=== PATIENT | male | born 1990 | race Caucasian/White ===

== ENCOUNTER 2017-11-13 19:06 | Emergency (ER) | payer MEDICAID ==
[~2017-11-13] VITALS: Ht 188 cm; Wt 82.1 kg
[2017-11-13 19:14] VITALS: Ht 188 cm; Wt 82.1 kg
[2017-11-13 22:42] VITALS: BP 120/66
== END 2017-11-13 22:43 | disposition home or self-care (01) ==
LOC: ED 19:06
DX: L03.113 Cellulitis of right upper limb (principal); F12.10 Cannabis abuse, uncomplicated
CPT/HCPCS: J3490

== ENCOUNTER 2019-02-22 18:24 | Emergency (ER) | payer MEDICAID ==
[~2019-02-22] VITALS: Ht 185.4 cm; Wt 83.5 kg
[2019-02-22 18:38] VITALS: Ht 185.4 cm; Wt 83.5 kg
[2019-02-22 20:03] VITALS: BP 123/60
== END 2019-02-22 20:03 | disposition home or self-care (01) ==
LOC: ED 18:24
DX: B00.1 Herpesviral vesicular dermatitis (principal)

== ENCOUNTER 2020-01-19 19:09 | Emergency (ER) | payer SELFPAY ==
[~2020-01-19] VITALS: Ht 185.4 cm; Wt 83.0 kg
[2020-01-19 20:11] VITALS: Ht 185.4 cm; Wt 83.0 kg
[2020-01-19 21:18] VITALS: BP 128/77
== END 2020-01-19 21:18 | disposition home or self-care (01) ==
LOC: ED 19:09
DX: N34.2 Other urethritis (principal)
CPT/HCPCS: 87491; 87591; J0696

== ENCOUNTER 2020-07-10 11:10 | Emergency (ER) | payer MEDICAID ==
[~2020-07-10] VITALS: Ht 185.4 cm; Wt 79.4 kg
[2020-07-10 11:32] VITALS: BP 130/73
== END 2020-07-10 11:52 | disposition home or self-care (01) ==
LOC: ED 11:10
DX: L25.9 Unspecified contact dermatitis, unspecified cause (principal); F10.29 Alcohol dependence with unspecified alcohol-induced disorder; Z71.6 Tobacco abuse counseling
CPT/HCPCS: 99406